=== PATIENT | male | born 1980 | race Caucasian/White ===

== ENCOUNTER 2022-10-30 21:57 | Emergency (ER) | payer MEDICAID, SELFPAY ==
[2022-10-30 22:05] VITALS: BP 156/99; PULSE 106; RESP 16; TEMP 36.9; O2SAT 96; BMI 23.1
[2022-10-30 22:21] VITALS: BP 150/88; PULSE 88; RESP 18; TEMP 36.6; O2SAT 98
--- NOTE | 2022-10-31 00:04 | [facility].EDMCLR ---
Discharge Plan Disposition Chief Complaint: Medical Clearance Referrals Follow up/Referrals: Provider,Referral, [Primary Care Provider] - See instructions Clinical Impressions Clinical Impression: Medical clearance for incarceration Discharge ED Provider: Juana HARRISON)Fernando Medical Clearance HPI General Chief complaint: Medical Clearance Stated complaint: medical clearance Time Seen by Provider: 10/30/22 22:10 Mode of Arrival: Ambulatory Source of Information: Patient and Law Enforcement Limitations: No Limitations Description of Symptoms (Recalled from ER Triage Doc. by RN): pt to ED via law enforcement for medical clearence. pt admits to using meth earlier this morning and denies any pain or complaints at this time History of Present Illness HPI Narrative: pt w/o specific c/o MD complaint: medical clearance requested Traumatic Symptoms: denies traumatic injury Allergies Allergy/AdvReac Type Severity Reaction Status Date / Time No Known Allergies Allergy Verified 10/30/22 23:52 [facility] Disclaimer: The information contained in this section may have been updated after the patient was seen, as this information can be updated by other users. Social History Smoking Status: Current every day smoker alcohol intake: former current occupational status: unemployed Travel in the last 8 weeks: None ROS Obtained: Yes All systems reviewed & no additional complaints except as documented Physical Exam General General appearance: alert Head Head exam: normocephalic Eye Eye exam: Present PERRL and EOMI ENT ENT exam: Present mucous membranes moist Neck Neck exam: Present trachea midline Respiratory Respiratory exam: Absent respiratory distress Cardiovascular Cardiovascular exam: Present regular rate Abdominal Exam Abdominal exam: Present soft Extremities Exam Extremities exam: Present full ROM Neurological Exam Neurological exam: Present alert and CN II-XII intact Psychiatric Psychiatric exam: Present normal affect Skin Skin exam: Absent rash Medical Decision Making Medical Records Medical records reviewed: Yes I reviewed the patient's medical records. Jean-Pierre Inquiry Pt receiving controlled substance: No Vital Signs: 10/30/22 22:05 10/30/22 22:21 Temperature 98.5 F 98 F Temperature Source Oral Oral Pulse Rate 88 Pulse Rate [Left Radial] 106 H Respiratory Rate 16 18 Blood Pressure 150/88 H Blood Pressure [Right Arm] 156/99 H Blood Pressure Mean [Right Arm] 118 Blood Pressure Source Automatic Cuff Blood Pressure Source [Right Arm] Automatic Cuff Blood Pressure Position Sitting Blood Pressure Position [Right Arm] Sitting 02 Sat by Pulse Oximetry 96 Oxygen Delivery Method Room Air Room Air Medical Decision Narrative: stable exam Critical Care Time Critical Care Time Critical Care Time: No Attestation: On 10/30/22, the high probability of a clinically significant, sudden or life threatening deterioration of the following system(s) required my full and direct attention, intervention and personal management. The time I documented below is in addition to time spent performing reported procedures but includes the following listed in this critical care notation.
== END 2022-10-30 23:01 ==
PROVIDERS: Emergency Provider Emergency Medicine
DX: Z00.8 Encounter for other general examination (principal); F17.210 Nicotine dependence, cigarettes, uncomplicated
CPT/HCPCS: 99283